=== PATIENT | female | born 1995 | race American Indian/Alaskan Native ===

== ENCOUNTER 2019-08-02 14:17 | Emergency (ER) | payer SELFPAY ==
[2019-08-02] MEDS ORDERED: Morphine 4 MG/ML Syringe IVPUSH ONE (14:23)
[2019-08-02] MEDS ORDERED: LORazepam 2 MG/ML SDV IVPUSH ONE (14:23)
[2019-08-02] MEDS ORDERED: Sodium Chloride 0.9% 10 ML Syringe FLUSH PRN (14:23)
--- NOTE | 2019-08-02 15:33 | CR ---
[id number] RAD/RAD Chest PA And Lateral EXAM: FRONTAL AND LATERAL CHEST INDICATION: POSTERIOR CHEST PAIN POST FALL. COMPARISON: None. DISCUSSION: The heart and lungs are normal in appearance. IMPRESSION: 1. Negative exam. Javi Sparrow MD 08/03/19 [id number] Thank you for allowing us to participate in the care of your patient.
--- NOTE | 2019-08-03 03:31 | EDM.PDOC ---
ED HPI GENERAL MEDICAL PROBLEM - General Chief Complaint: Back Pain or Injury Stated Complaint: ER Time Seen by Provider: 08/02/19 14:25 Source of Information: Reports: Patient History Limitations: Reports: No Limitations - History of Present Illness INITIAL COMMENTS - FREE TEXT/NARRATIVE: Pt. presents to ER with complaints of posterior chest wall pain and shortness of breath. Pt. was initially seen in clinic. She was anxious and extremely dyspneic and was brought to ER. Pt. states that she feel onto her backside in stairs and slid on her back down approx. 20-25 stairs. Pt. did not strike her head. No midline back pain. No neck discomfort. Pt. was tachypneic and hyperventilating today and has been this AM. Denies any history of asthma. No drug use. Onset Date: 08/02/19 Location: Reports: Chest Bilateral Back Pain Score (Numeric/FACES): 10 - Related Data Allergies Allergy/AdvReac Type Severity Reaction Status Date / Time No Known Allergies Allergy Verified 08/02/19 14:54 Home Meds: Home Meds . [No Known Home Meds] 08/02/19 [History] Past Medical History - Past Health History Medical/Surgical History: Denies Medical/Surgical History Psychiatric History: Reports: Anxiety Social & Family History - Tobacco Use Smoking Status *Q: Current Every Day Smoker Years of Tobacco use: 10 Packs/Tins Daily: 1 - Recreational Drug Use Drug Use in Last 12 Months: Yes Recreational Drug Type: Reports: Marijuana/Hashish ED ROS GENERAL - Review of Systems Review Of Systems: See Below Constitutional: Reports: No Symptoms HEENT: Reports: No Symptoms Respiratory: Reports: Shortness of Breath. Denies: Cough Cardiovascular: Reports: No Symptoms Endocrine: Reports: No Symptoms GI/Abdominal: Reports: No Symptoms : Reports: No Symptoms Musculoskeletal: Reports: No Symptoms Skin: Reports: No Symptoms Neurological: Reports: Tremors, Trouble Speaking Psychiatric: Reports: Agitation, Anxiety Hematologic/Lymphatic: Reports: No Symptoms ED EXAM, GENERAL - Physical Exam Exam: See Below Exam Limited By: No Limitations General Appearance: Alert, WD/WN, No Apparent Distress Eye Exam: Bilateral Eye: EOMI, Normal Fundi, Normal Inspection, PERRL Nose: Normal Inspection, No Blood Throat/Mouth: Normal Inspection, Normal Lips, Normal Teeth, No Airway Compromise Head: Atraumatic, Normocephalic Neck: Normal Inspection, Supple, Non-Tender, Full Range of Motion Respiratory/Chest: Respiratory Distress, Other (tachypnea, hyperventilation) Cardiovascular: Normal Peripheral Pulses, Regular Rate, Rhythm, No Edema, No Gallop, No JVD, No Murmur, No Rub GI/Abdominal: Soft, Non-Tender, No Distention, No Mass, Pelvis Stable (Female) Exam: Deferred Rectal (Female) Exam: Deferred Back Exam: Normal Inspection, Full Range of Motion, Other (pain to posterior chest wall). No: Muscle Spasm, Paraspinal Tenderness, Vertebral Tenderness Extremities: Normal Inspection, Normal Range of Motion Neurological: Alert, Oriented, CN II-XII Intact, Normal Gait, No Motor/Sensory Deficits Psychiatric: Anxious, Tearful Skin Exam: Warm, Dry, Intact, Normal Color, No Rash Course - Vital Signs Last Recorded V/S: Last Vital Signs Temp 36.6 C 08/02/19 14:20 Pulse 110 H 08/02/19 14:20 Resp 28 H 08/02/19 14:20 BP 139/96 H 08/02/19 14:20 Pulse Ox 100 08/02/19 14:20 - Orders/Labs/Meds Orders: Active Orders 24 hr Category Date Time Status Peripheral IV Insertion Adult [OM.PC] Routine Oth 08/02/19 14:23 Ordered Meds: Medications Discontinued Medications Generic Name Dose Route Start Last Admin Trade Name Freq PRN Reason Stop Dose Admin Lorazepam 1 mg 08/02/19 14:23 08/02/19 14:30 Ativan IVPUSH 08/02/19 14:24 1 mg STAT ONE Administration Morphine Sulfate 4 mg 08/02/19 14:23 08/02/19 14:30 Morphine IVPUSH 08/02/19 14:24 4 mg ONETIME ONE Administration Sodium Chloride 10 ml 08/02/19 14:23 Saline Flush FLUSH ASDIRECTED PRN Keep Vein Open - Radiology Interpretation Free Text/Narrative:: Chest x-ray is negative for acute pathology Departure - Departure Time of Disposition: 15:46 Disposition: Home, Self-Care 01 Clinical Impression: Chest wall contusion, Acute hyperventilation syndrome - Discharge Information Instructions: Acute Back Pain, Adult Referrals: Layla Hermosillo MD [Primary Care Provider] - Forms: ED Department Discharge Additional Instructions: [place] 5/325mg 1 every 4-6 hours as needed for pain. Ibuprofen 200mg 3 tabs every 6 hours as needed for pain. Ice painful areas for 15 min every hour. Sepsis Event Note - Evaluation Sepsis Screening Result: No Definite Risk - My Orders Last 24 Hours: My Active Orders 08/02/19 14:23 Peripheral IV Insertion Adult [OM.PC] Routine - Assessment/Plan Last 24 Hours: My Active Orders 08/02/19 14:23 Peripheral IV Insertion Adult [OM.PC] Routine Plan: [place] 5/325mg 1 every 4-6 hours as needed for pain. Ibuprofen 200mg 3 tabs every 6 hours as needed for pain. Ice painful areas for 15 min every hour.
== END 2019-08-02 15:46 | disposition home or self-care (01) ==
LOC: VM.ED 14:17
DX: S20.219A Contusion of unspecified front wall of thorax, initial encounter (principal); F45.8 Other somatoform disorders; F17.210 Nicotine dependence, cigarettes, uncomplicated; W10.9XXA Fall (on) (from) unspecified stairs and steps, initial encounter
CPT/HCPCS: 71046; 96374; 96375; 99284; 99285; J2060; J2270

== ENCOUNTER 2020-02-03 22:09 | Emergency (ER) | payer OTHER ==
[2020-02-03] MEDS ORDERED: Acetaminophen/HYDROcodone 325-10 MG Tab PO ONE (22:24)
[2020-02-03] MEDS ORDERED: LORazepam 2 MG/ML SDV IM ONE (22:54)
--- NOTE | 2020-02-03 23:08 | EDM.PDOC ---
ED HPI GENERAL MEDICAL PROBLEM - General Chief Complaint: General Stated Complaint: FALL Time Seen by Provider: 02/03/20 22:21 Source of Information: Reports: Patient History Limitations: Reports: No Limitations - History of Present Illness INITIAL COMMENTS - FREE TEXT/NARRATIVE: Pt. presents to ER with complaints of R sided lower anterior chest wall pain. Pt. states that she slipped in some sauce that she spilled and fell from standing height, hitting her chest on the corner of a sink. She states that she is experiencing severe discomfort, worse with deep breathing. Denies stiking head. No neck pain. No substernal chest pain. She is crying and hyperventilating on arrival to ER. Denies any pelvic pain or extremity trauma. Onset: Today Onset Date: 02/03/20 Location: Reports: Chest Quality: Reports: Throbbing Severity: Severe Right Pain Score (Numeric/FACES): 9 - Related Data Allergies Allergy/AdvReac Type Severity Reaction Status Date / Time No Known Allergies Allergy Verified 02/03/20 22:12 Home Meds: Home Meds . [No Known Home Meds] 08/02/19 [History] Past Medical History - Past Health History Medical/Surgical History: Denies Medical/Surgical History Psychiatric History: Reports: Anxiety Social & Family History - Tobacco Use Smoking Status *Q: Current Status Unknown ED ROS GENERAL - Review of Systems Review Of Systems: Comprehensive ROS is negative, except as noted in HPI. ED EXAM, GENERAL - Physical Exam Exam: See Below Exam Limited By: No Limitations General Appearance: Alert, WD/WN, No Apparent Distress Head: Atraumatic, Normocephalic Neck: Normal Inspection, Supple, Non-Tender Respiratory/Chest: No Respiratory Distress, Lungs Clear, Normal Breath Sounds, No Accessory Muscle Use, Chest Non-Tender Cardiovascular: Normal Peripheral Pulses, Regular Rate, Rhythm, No Edema, No Gallop, No JVD, No Murmur, No Rub GI/Abdominal: Soft, No Distention, No Mass Back Exam: Normal Inspection, Full Range of Motion Course - Vital Signs Last Recorded V/S: Last Vital Signs Temp 37.4 C 02/03/20 22:14 Pulse 118 H 02/03/20 22:14 Resp 20 02/03/20 22:14 BP 107/61 02/03/20 22:14 Pulse Ox 99 06/14/20 22:14 - Orders/Labs/Meds Orders: Active Orders 24 hr Category Date Time Status Chest 2V [CR] Stat Exams 02/03/20 22:24 Taken Meds: Medications Discontinued Medications Generic Name Dose Route Start Last Admin Trade Name Angeline PRN Reason Stop Dose Admin Hydrocodone Bitart/Acetaminophen 1 tab 02/03/20 22:24 02/03/20 22:30 Strum 325-10 Mg PO 02/03/20 22:25 1 tab ONETIME ONE Administration Hydrocodone Bitart/Acetaminophen 1 packet 02/03/20 23:21 02/03/20 23:20 Take Home: Acetam/Hydrocodon 325-5 Mg, 5 Pack PO 02/03/20 23:22 1 packet ONETIME ONE Administration Lorazepam 2 mg 02/03/20 22:54 02/03/20 23:00 Ativan IM 02/03/20 22:55 2 mg ONETIME ONE Administration Departure - Departure Time of Disposition: 23:40 Disposition: Home, Self-Care 01 Clinical Impression: Chest wall injury - Discharge Information Instructions: Acetaminophen; Hydrocodone tablets or capsules, Rib Contusion Referrals: Layla Hermosillo MD [Primary Care Provider] - Forms: ED Department Discharge Additional Instructions: Home to rest. Strum 5/325mg 1 every 6 hours as needed for pain Ibuprofen 200mg 3 tabs every 6 hours as needed for pain Use heating pack Off work tomorrow as needed Sepsis Event Note (ED) - Evaluation Sepsis Screening Result: No Definite Risk - Focused Exam Vital Signs: Vital Signs Temp Pulse Resp BP Pulse Ox 02/03/20 22:14 37.4 C 118 H 20 107/61 99 - My Orders Last 24 Hours: My Active Orders 02/03/20 22:24 Chest 2V [CR] Stat - Assessment/Plan Last 24 Hours: My Active Orders 02/03/20 22:24 Chest 2V [CR] Stat
[2020-02-03] MEDS ORDERED: Take Home: Acetaminophen/HYDROcodone 325-5 MG, 5 Tab Pack PO ONE (23:21)
--- NOTE | 2020-02-04 07:53 | CR ---
[id number] RAD/RAD Chest PA And Lateral EXAM: RAD Chest PA And Lateral CLINICAL DATA: TRAUMA COMPARISON: CORRELATION IS MADE WITH AUGUST 02, 2019 FINDINGS: The lungs are clear. The cardiomediastinal contour is normal. The regional bones and soft tissues are unremarkable. IMPRESSION: NO ACUTE PROCESS. Alvarado Patrick MD 02/04/20 0752 Thank you for allowing us to participate in the care of your patient.
== END 2020-02-03 23:25 | disposition home or self-care (01) ==
LOC: VM.ED 22:09
DX: S29.9XXA Unspecified injury of thorax, initial encounter (principal); W01.198A Fall on same level from slipping, tripping and stumbling with subsequent striking against other object, initial encounter
CPT/HCPCS: 71046; 96372; 99283-GF; 99284-25; A9270-GY; J2060

== ENCOUNTER 2020-02-09 18:41 | Emergency (ER) | payer SELFPAY ==
[2020-02-09] MEDS ORDERED: Ketorolac 15 MG/ML SDV IVPUSH ONE (19:07)
[2020-02-09] MEDS ORDERED: Sodium Chloride 0.9% 10 ML Syringe FLUSH PRN (19:08)
--- NOTE | 2020-02-09 19:19 | EDM.PDOC ---
ED HPI GENERAL MEDICAL PROBLEM - General Chief Complaint: General Stated Complaint: BODY ACHES Time Seen by Provider: 02/09/20 18:55 Source of Information: Reports: Patient History Limitations: Reports: No Limitations - History of Present Illness INITIAL COMMENTS - FREE TEXT/NARRATIVE: Patient comes into the emergency department with complaints of lower abdominal discomfort. Patient states that the abdominal pain started earlier today. She states that she started spotting blood yesterday and it has continued onto Today. Patient states that she last had her period on January 20 which was a normal period and it lasted approximately 5 days. She is not expected to have her period for another 2 weeks. Patient states that she is also had urinary frequency, hesitancy, and urgency. Patient also states that she has been chilled throughout the entire day and also has generalized body aches.Patient also describes lower abdominal pain as cramping sensation and pulsating.Or si tting. She denies taking any medication prior to arrival to the emergency department.Patient states that she is in a monogamous relationship she had sex yesterday and the day before that prior to that it was approximately 2 months before then. Patient states that her and her have been however they reconnected this last week. She does not feel that he has had any other sexual partners. She has no reason to suspect that he has not been truthful with her. Patient was due to work this evening however she states due to the significant amount of pain and discomfort she was not able to attend work.Patient also states that she does have some lower extremity weakness and that is not new for her. She states that she often gets it with the weather/climate changes and has had that worked up in the past and feels it is currently no different feeling. Onset: Sudden Quality: Reports: Throbbing, Other Severity: Severe Improves with: Reports: Heat Therapy Worsens with: Reports: Immobilization, Movement Associated Symptoms: Reports: Fever/Chills, Loss of Appetite, Malaise - Related Data Allergies Allergy/AdvReac Type Severity Reaction Status Date / Time No Known Allergies Allergy Verified 02/03/20 22:12 Home Meds: Home Meds Sulfamethoxazole/Trimethoprim [Bactrim Ds Tablet] 1 each PO BID 4 Days #8 tablet 02/09/20 [Rx] Past Medical History - Past Health History Medical/Surgical History: Denies Medical/Surgical History Psychiatric History: Reports: Anxiety ED ROS GENERAL - Review of Systems Review Of Systems: Comprehensive ROS is negative, except as noted in HPI. Constitutional: Reports: Fever, Chills, Malaise, Weakness, Decreased Appetite HEENT: Reports: No Symptoms Respiratory: Reports: No Symptoms GI/Abdominal: Reports: Abdominal Pain : Reports: Frequency, Hematuria, Pain, Urgency Musculoskeletal: Reports: No Symptoms Skin: Reports: No Symptoms Neurological: Reports: No Symptoms Psychiatric: Reports: No Symptoms Hematologic/Lymphatic: Reports: No Symptoms ED EXAM, GENERAL - Physical Exam Exam: See Below Exam Limited By: No Limitations General Appearance: Alert, WD/WN, No Apparent Distress Respiratory/Chest: No Respiratory Distress, Lungs Clear, Normal Breath Sounds, No Accessory Muscle Use, Chest Non-Tender Cardiovascular: Normal Peripheral Pulses, Regular Rate, Rhythm, No Edema GI/Abdominal: Normal Bowel Sounds, No Organomegaly, Tender Back Exam: Normal Inspection, Full Range of Motion Extremities: Normal Inspection, Normal Range of Motion, Non-Tender, Normal Capillary Refill Neurological: Alert, Oriented, Normal Gait Psychiatric: Normal Affect, Normal Mood Skin Exam: Warm, Dry, Intact Course - Orders/Labs/Meds Orders: Active Orders 24 hr Category Date Time Status CULTURE URINE [RM] Stat Lab 02/09/20 19:10 Received Sodium Chloride 0.9% [Saline Flush] Med 02/09/20 19:08 Active 10 ml FLUSH ASDIRECTED PRN Peripheral IV Insertion Adult [OM.PC] Stat Oth 02/09/20 19:08 Ordered Medication Orders Sodium Chloride (Saline Flush) 10 ml FLUSH ASDIRECTED PRN PRN Reason: Keep Vein Open Labs: Laboratory Tests 02/09/20 02/09/20 02/09/20 Range/Units 19:10 19:22 19:22 WBC 6.0 (4.0-10.0) x10^3/uL RBC 4.79 (4.00-5.50) x10^6/uL Hgb 10.6 L (12.0-16.0) g/dL Hct 34.4 (33.0-47.0) % MCV 71.8 L (78.0-93.0) fL MCH 22.1 L (26.0-32.0) pg MCHC 30.8 L (32.0-36.0) g/dL RDW Coeff of Fabi 18.2 H (10.0-15.0) % Plt Count 311 (130-400) x10^3/uL Neut % (Auto) 50.5 (50.0-80.0) % Lymph % (Auto) 38.2 (25.0-50.0) % [place] % (Auto) 7.7 (2.0-11.0) % Eos % (Auto) 2.8 (0.0-4.0) % Baso % (Auto) 0.8 (0.2-1.2) % Sodium 143 (136-145) mmol/L Potassium 3.7 (3.5-5.1) mmol/L Chloride 106 (98-107) mmol/L Carbon Dioxide 25 (21-32) mmol/L Anion Gap 15.7 (10-20) mmol/L BUN 6 L (7-18) mg/dL Creatinine 0.8 (0.55-1.02) mg/dL Est Cr Clr Drug Dosing TNP Estimated GFR (MDRD) > 60 Glucose 93 (74-106) mg/dL Calcium 8.5 (8.5-10.1) mg/dL Corrected Calcium 8.66 (8.5-10.1) mg/dL Total Bilirubin 0.2 (0.2-1.0) mg/dL AST 22 (15-37) U/L ALT 18 (14-59) U/L Alkaline Phosphatase 78 (46-116) U/L Total Protein 7.1 (6.4-8.2) g/dL Albumin 3.8 (3.4-5.0) g/dL Globulin 3.3 Albumin/Globulin Ratio 1.15 Urine Color Red H (YELLOW) Urine Appearance Cloudy H (CLEAR) Urine pH 7.0 (5.0-8.0) Ur Specific [place] 1.015 Urine Protein 100 H (NEGATIVE) mg/dL Urine Glucose (UA) Negative (NEGATIVE) mg/dL Urine Ketones Negative (NEGATIVE) mg/dL Urine Occult Blood Large H (NEGATIVE) Urine Nitrite Negative (NEGATIVE) Urine Bilirubin Negative (NEGATIVE) Urine Urobilinogen 0.2 (0.2) EU/dL Ur Leukocyte Esterase Trace H (NEGATIVE) Urine RBC Packed H (NOT SEEN) /HPF Urine WBC 5-10 H (NOT SEEN) /HPF Ur Squamous Epith Cells Few H (NEGATIVE) /HPF Urine Bacteria Not seen (NEGATIVE) /HPF Urine Mucus Not seen (NEGATIVE) /LPF SARS-CoV-2 RNA (RT-PCR) (NEGATIVE) 02/09/20 Range/Units 19:28 WBC (4.0-10.0) x10^3/uL RBC (4.00-5.50) x10^6/uL Hgb (12.0-16.0) g/dL Hct (33.0-47.0) % MCV (78.0-93.0) fL MCH (26.0-32.0) pg MCHC (32.0-36.0) g/dL RDW Coeff of Fabi (10.0-15.0) % Plt Count (130-400) x10^3/uL Neut % (Auto) (50.0-80.0) % Lymph % (Auto) (25.0-50.0) % [place] % (Auto) (2.0-11.0) % Eos % (Auto) (0.0-4.0) % Baso % (Auto) (0.2-1.2) % Sodium (136-145) mmol/L Potassium (3.5-5.1) mmol/L Chloride (98-107) mmol/L Carbon Dioxide (21-32) mmol/L Anion Gap (10-20) mmol/L BUN (7-18) mg/dL Creatinine (0.55-1.02) mg/dL Est Cr Clr Drug Dosing Estimated GFR (MDRD) Glucose (74-106) mg/dL Calcium (8.5-10.1) mg/dL Corrected Calcium (8.5-10.1) mg/dL Total Bilirubin (0.2-1.0) mg/dL AST (15-37) U/L ALT (14-59) U/L Alkaline Phosphatase (46-116) U/L Total Protein (6.4-8.2) g/dL Albumin (3.4-5.0) g/dL Globulin Albumin/Globulin Ratio Urine Color (YELLOW) Urine Appearance (CLEAR) Urine pH (5.0-8.0) Ur Specific [place] Urine Protein (NEGATIVE) mg/dL Urine Glucose (UA) (NEGATIVE) mg/dL Urine Ketones (NEGATIVE) mg/dL Urine Occult Blood (NEGATIVE) Urine Nitrite (NEGATIVE) Urine Bilirubin (NEGATIVE) Urine Urobilinogen (0.2) EU/dL Ur Leukocyte Esterase (NEGATIVE) Urine RBC (NOT SEEN) /HPF Urine WBC (NOT SEEN) /HPF Ur Squamous Epith Cells (NEGATIVE) /HPF Urine Bacteria (NEGATIVE) /HPF Urine Mucus (NEGATIVE) /LPF SARS-CoV-2 RNA (RT-PCR) Negative (NEGATIVE) Meds: Medications Generic Name Dose Route Start Last Admin Trade Name Freq PRN Reason Stop Dose Admin Sodium Chloride 10 ml 02/09/20 19:08 Saline Flush FLUSH ASDIRECTED PRN Keep Vein Open Discontinued Medications Generic Name Dose Route Start Last Admin Trade Name Freq PRN Reason Stop Dose Admin Ceftriaxone Sodium 1 gm 02/09/20 19:59 Rocephin IVPUSH 02/09/20 20:00 ONETIME ONE Ketorolac Tromethamine 15 mg 02/09/20 19:07 02/09/20 19:42 Toradol IVPUSH 02/09/20 19:08 15 mg ONETIME ONE Administration Phenazopyridine HCl 95 mg 02/09/20 20:02 Urinary Pain Relief PO 02/09/20 20:03 STAT STA Trimethoprim/Sulfamethoxazole 1 packet 02/09/20 20:00 Take Home: Sulfameth/Trimet 800-160mg, 2 Pack PO 02/09/20 20:01 ONETIME ONE Departure - Departure Time of Disposition: 20:10 Disposition: Home, Self-Care 01 Condition: Good Clinical Impression: UTI (urinary tract infection) Qualifiers: Urinary tract infection type: site unspecified Hematuria presence: with hematuria Qualified Code(s): N39.0 - Urinary tract infection, site not specified - Discharge Information *PRESCRIPTION DRUG MONITORING PROGRAM REVIEWED*: Not Applicable *COPY OF PRESCRIPTION DRUG MONITORING REPORT IN PATIENT KERVIN: Not Applicable Prescriptions: Sulfamethoxazole/Trimethoprim [Bactrim Ds Tablet] 1 each PO BID 4 Days #8 tablet Instructions: Urinary Tract Infection, Adult, Sulfamethoxazole; Trimethoprim, SMX-TMP tablets, Probiotics Referrals: Layla Hermosillo MD [Primary Care Provider] - Forms: ED Department Discharge Additional Instructions: 1. rest 2. increase your water intake 3. Take all antibiotics as prescribed even if feeling better 4. Take a probiotic while on antibiotics to help promote healthy GI motility 5. Activity and diet as tolerated 6. Can use Ibuprofen and tylenol for any fever or discomfort 7. Follow up with your PCP or return if symptoms progress or worsen 8. Education provided to you regarding your illness, probiotics, antibiotic prescribed 9. Call with any questions or concerns - My Orders Last 24 Hours: My Active Orders 02/09/20 19:08 Sodium Chloride 0.9% [Saline Flush] 10 ml FLUSH ASDIRECTED PRN Peripheral IV Insertion Adult [OM.PC] Stat 02/09/20 19:10 CULTURE URINE [RM] Stat - Assessment/Plan Last 24 Hours: My Active Orders 02/09/20 19:08 Sodium Chloride 0.9% [Saline Flush] 10 ml FLUSH ASDIRECTED PRN Peripheral IV Insertion Adult [OM.PC] Stat 02/09/20 19:10 CULTURE URINE [RM] Stat Assessment:: 1. abdominal pain 2. Plan: 1. Labs completed in the ER. Results reviewed with the patient 2. CT scan completed in the ER. Results reviewed with the patient 3. IV initiated in the emergency department 4. Pain medication given for severe pain and discomfort- 5. UA/UC ordered 6. Rocephin IV given 7. Pyridium PO given in the ER 8. Bactrim take home and script sent with patient 9. Patient and nursing staff was updated regarding the plan of care 10. Patient and family are agreeable to the above plan of care 11. All questions and concerns were addressed with the patient and family prior to discharge
[2020-02-09 19:48] LABS: CHLORIDE,CL 106 mmol/L (98-107); SODIUM,NA 143 mmol/L (136-145)
[2020-02-09 19:49] LABS: ANION GAP 15.7 mmol/L (10-20)
--- NOTE | 2020-02-09 19:56 | CT ---
[id number] CT/CT Abdomen Pelvis WO IV Exam: CT Abdomen Pelvis WO IV Clinical Data: ABDOMINAL PAIN COMPARISON: NO PREVIOUS SIMILAR EXAM IS AVAILABLE FINDINGS: The gallbladder is normal The appendix is normal There is no bowel obstruction. There is no free air or free fluid IV contrast was not used limiting the study The liver and spleen, adrenals, aorta, pancreas, and kidneys show no acute abnormalities There are granulomatous changes of the spleen The pelvis shows no mass or adenopathy The uterus is deviated to the left Consider follow-up CT and pelvis with contrast enhancement if needed IMPRESSION: NO ACUTE PROCESS Alvarado Patrick MD 02/09/201954 Thank you for allowing us to participate in the care of your patient.
[2020-02-09] MEDS ORDERED: cefTRIAXone 1 GM Vial IVPUSH ONE (19:59)
[2020-02-09] MEDS ORDERED: Take Home: Sulfamethoxazole/Trimethoprim 800-160 MG Tab, 2 Tab Pack PO ONE (20:00)
[2020-02-09] MEDS ORDERED: Phenazopyridine 95 MG Tab PO STA (20:02)
== END 2020-02-09 20:57 | disposition home or self-care (01) ==
LOC: VM.ED 18:41
DX: N39.0 Urinary tract infection, site not specified (principal); R31.9 Hematuria, unspecified; Z20.828 Contact with and (suspected) exposure to other viral communicable diseases
CPT/HCPCS: 74176; 80053; 81001; 85025; 87086; 87635; 96374; 96375; 99283; 99284; A9270; J0696; J1885; U0002

== ENCOUNTER 2020-09-03 16:51 | Emergency (ER) | payer MEDICAID ==
[2020-09-03] MEDS ORDERED: Lactated Ringers 1,000 ML IV ONE (17:05)
[2020-09-03] MEDS ORDERED: Morphine 2 MG/ML SYRINGE IVPUSH ONE ×2 (17:05→18:36)
[2020-09-03] MEDS ORDERED: Sodium Chloride 0.9% 10 ML Syringe FLUSH PRN (17:05)
[2020-09-03] MEDS ORDERED: Ondansetron 4 MG/2 ML SDV IVPUSH ONE (17:05)
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
[2020-09-03 17:39] LABS: CHLORIDE,CL 101 mmol/L (98-107); SODIUM,NA 137 mmol/L (136-145)
[2020-09-03 17:43] LABS: ANION GAP 14.9 mmol/L (5-15)
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
[2020-09-03 18:56] LABS: BUPRENORPHINE,URINE NEGATIVE (NEGATIVE)
[2020-09-03 18:57] LABS: MARIJUANA,URINE POSITIVE (NEGATIVE); METHYLENEDIOXYMETHAMP,UR NEGATIVE (NEGATIVE); PHENCYCLIDINE,URINE NEGATIVE (NEGATIVE)
== END 2020-09-03 19:13 | disposition short-term general hospital (02) ==
LOC: VM.ED 16:51
DX: S05.92XA Unspecified injury of left eye and orbit, initial encounter (principal); S20.01XA Contusion of right breast, initial encounter; H11.32 Conjunctival hemorrhage, left eye; R42 Dizziness and giddiness; Y04.0XXA Assault by unarmed brawl or fight, initial encounter; Y92.009 Unspecified place in unspecified non-institutional (private) residence as the place of occurrence of the external cause
CPT/HCPCS: 70450; 72125; 80053; 80305-QW; 80307; 81025; 83735; 85025; 86140; 96374; 96375; 96376; 99284; 99285-25; J2270; J2405; J7120

== ENCOUNTER 2021-02-02 15:29 | Emergency (ER) | payer SELFPAY ==
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
[2021-02-02] MEDS ORDERED: hydrOXYzine HCl 25 MG Tab PO ONE (17:17)
== END 2021-02-02 17:35 | disposition home or self-care (01) ==
LOC: VM.ED 15:29
DX: F41.9 Anxiety disorder, unspecified (principal); Z72.0 Tobacco use
CPT/HCPCS: 93005; 99284; A9270

== ENCOUNTER 2021-06-24 20:17 | Emergency (ER) | payer MEDICAID, OTHER ==
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
[2021-06-24] MEDS: LORazepam 1 MG Tab PO ONE (20:46)
== END 2021-06-24 21:28 | disposition home or self-care (01) ==
LOC: VM.ED 20:17
DX: F41.0 Panic disorder [episodic paroxysmal anxiety] (principal); Z63.0 Problems in relationship with spouse or partner
CPT/HCPCS: 99283; 99284; A9270-GY

== ENCOUNTER 2021-07-30 14:14 | Emergency (ER) | payer SELFPAY ==
[2021-07-30] MEDS ORDERED: LORazepam 1 MG Tab PO ONE (14:45)
[2021-07-30 15:13] LABS: ANION GAP 13.6 mmol/L (5-15); CHLORIDE,CL 105 mmol/L (98-107); SODIUM,NA 140 mmol/L (136-145)
[2021-07-30 15:26] LABS: ACETAMINOPHEN 0 ug/ml (10-30)
[2021-07-30 15:48] LABS: BARBITURATE SCREEN,URINE NEGATIVE (NEGATIVE); BENZODIAZEPINES SCREEN,URINE NEGATIVE (NEGATIVE); BUPRENORPHINE SCREEN,URINE NEGATIVE (NEGATIVE); METHAMPHETAMINE SCREEN, URINE NEGATIVE (NEGATIVE); THC SCREEN,URINE 50 NG/ML POSITIVE (NEGATIVE)
--- NOTE | 2021-07-30 16:12 | EDM.PDOCBH ---
ED HPI GENERAL MEDICAL PROBLEM - General Chief Complaint: Behavioral/Psych Stated Complaint: EVALUATION Time Seen by Provider: 07/30/21 14:15 Source of Information: Reports: Patient, Police History Limitations: Reports: No Limitations - History of Present Illness INITIAL COMMENTS - FREE TEXT/NARRATIVE: Patient comes emergency department today from home with the police for concerns of suicidal ideation and statements. This patient was at home with her today when they got in a verbal disagreement. Some very "hurtful" things were said between her and her and she was quite upset. She then texted a family member and said she just wants to or kill her self. She has made many suicidal statements in the past and also has done cutting in the past but nothing recently. She denies taking anything in an attempt to harm herself today. She denies cutting herself. Upon arrival the patient is quite tearful and anxious and complains of having a panic attack. She states that she was very worked up this morning after a verbal disagreement and was suicidal at that time. Although she is not suicidal at this time. She would not harm her self. She is states that she was caught up in the moment and did not know what to do and reached out to a family member. She denies any recreational drug usage other than marijuana which she feels is the only thing that treats her anxiety. She has taken anxiety medication in the past but it has not worked after she has taken it for 1 to 2 days so she has discontinued it. She does not see a counselor on a regular basis. She denies any homicidal ideation. She is without any other physical complaints at this time. - Related Data Allergies Allergy/AdvReac Type Severity Reaction Status Date / Time No Known Allergies Allergy Verified 06/24/21 23:59 Home Meds: Home Meds . 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 Social & Family History - Family History Family Medical History: No Pertinent Family History ED ROS GENERAL - Review of Systems Review Of Systems: Comprehensive ROS is negative, except as noted in HPI. ED EXAM, BEHAVIORAL HEALTH - Physical Exam Exam: See Below Exam Limited By: No Limitations General Appearance: Alert, WD/WN, Anxious (She is sobbing and crying) Eye Exam: Bilateral Eye: EOMI, PERRL Ears: Normal External Exam Nose: Normal Inspection Throat/Mouth: Normal Inspection Head: Atraumatic Neck: Normal Inspection Respiratory/Chest: No Respiratory Distress, Lungs Clear, Normal Breath Sounds, No Accessory Muscle Use, Chest Non-Tender Cardiovascular: Normal Peripheral Pulses, Regular Rate, Rhythm GI/Abdominal: Normal Bowel Sounds, Soft, Non-Tender (Female) Exam: Deferred Rectal (Female) Exam: Deferred Back Exam: Normal Inspection Extremities: Normal Inspection Neurological: Alert, Normal Mood/Affect, CN II-XII Intact, Normal Cognition, Normal Gait, Normal Reflexes, No Motor/Sensory Deficits, Oriented x 3 Psychiatric: Alert, Oriented, Tearful. No: Disoriented, Inattentive, Non- Communicative, Poor Eye Contact, Uncooperative, Withdrawn, Homicidal Thoughts, Phobic, Oriental Orthodox Delusions, Suicidal Plan, Suicidal Thoughts, Tangential Thoughts, Auditory Hallucinations, Visual Hallucinations, Grandiose Thoughts, Pressured Speech Skin Exam: Warm, Dry, Intact, Normal color, No rash COURSE, BEHAVIORAL HEALTH COMP - Course Orders, Labs, Meds: Laboratory Tests 07/30/21 07/30/21 07/30/21 Range/Units 14:47 14:47 14:47 WBC 7.1 (4.0-10.0) x10^3/uL RBC 4.65 (4.00-5.50) x10^6/uL Hgb 10.4 L (12.0-16.0) g/dL Hct 33.6 (33.0-47.0) % MCV 72.3 L (78.0-93.0) fL MCH 22.4 L (26.0-32.0) pg MCHC 31.0 L (32.0-36.0) g/dL RDW Coeff of Fabi 17.2 H (10.0-15.0) % Plt Count 263 (130-400) x10^3/uL Immature Gran % (Auto) 0.00 (0.00-0.43) % Neut % (Auto) 76.0 (50.0-80.0) % Lymph % (Auto) 17.6 L (25.0-50.0) % [place] % (Auto) 5.4 (2.0-11.0) % Eos % (Auto) 0.6 (0.0-4.0) % Baso % (Auto) 0.4 (0.2-1.2) % Neut # (Auto) 5.4 (1.8-7.7) x10^3/uL Lymph # (Auto) 1.3 (1.0-4.8) x10^3/uL [place] # (Auto) 0.4 (0.0-0.8) x10^3/uL Eos # (Auto) 0.0 (0.0-0.5) x10^3/uL Baso # (Auto) 0.0 (0.0-0.2) x10^3/uL Immature Gran # (Auto) 0.00 (0.00-0.07) x10^3/uL Sodium 140 (136-145) mmol/L Potassium 3.6 (3.5-5.1) mmol/L Chloride 105 (98-107) mmol/L Carbon Dioxide 25 (21-32) mmol/L Anion Gap 13.6 (5-15) mmol/L BUN 9 (7-18) mg/dL Creatinine 0.6 (0.55-1.02) mg/dL Est Cr Clr Drug Dosing 131.11 mL/min Estimated GFR (MDRD) > 60 Glucose 96 (70-99) mg/dL Calcium 8.5 (8.5-10.1) mg/dL Corrected Calcium 8.7 (8.5-10.1) mg/dL Magnesium 1.6 L (1.8-2.4) mg/dL Total Bilirubin 0.2 (0.2-1.0) mg/dL AST 16 (15-37) U/L ALT 17 (14-59) U/L Alkaline Phosphatase 85 (46-116) U/L Total Protein 7.2 (6.4-8.2) g/dL Albumin 3.8 (3.4-5.0) g/dL Globulin 3.4 Albumin/Globulin Ratio 1.12 Urine Color (YELLOW) Urine Appearance (CLEAR) Urine pH (5.0-8.0) Ur Specific [place] Urine Protein (NEGATIVE) mg/dL Urine Glucose (UA) (NEGATIVE) mg/dL Urine Ketones (NEGATIVE) mg/dL Urine Occult Blood (NEGATIVE) Urine Nitrite (NEGATIVE) Urine Bilirubin (NEGATIVE) Urine Urobilinogen (0.2) EU/dL Ur Leukocyte Esterase (NEGATIVE) Urine RBC (NOT SEEN) /HPF Urine WBC (NOT SEEN) /HPF Ur Squamous Epith Cells (NOT SEEN) /HPF Urine Bacteria (NOT SEEN) /HPF Urine Mucus (NOT SEEN) /LPF Salicylates 4.9 (2.8-20(Therapeutic)) mg/dL Urine Opiates Screen (NEGATIVE) Ur Buprenorphine Scrn (NEGATIVE) Ur Oxycodone Screen (NEGATIVE) Urine Methadone Screen (NEGATIVE) Acetaminophen 0 L (10-30) ug/ml Ur Barbiturates Screen (NEGATIVE) Ur Phencyclidine Scrn (NEGATIVE) Ur Amphetamine Screen (NEGATIVE) U Methamphetamines Scrn (NEGATIVE) Urine MDMA Screen (NEGATIVE) U Benzodiazepines Scrn (NEGATIVE) U Cocaine Metab Screen (NEGATIVE) U Marijuana (THC) Screen (NEGATIVE) Ethyl Alcohol < 3 (0-3) mg/dL SARS CoV-2 RNA Rapid FARIBA (NEGATIVE) 07/30/21 07/30/21 07/30/21 Range/Units 15:10 15:10 15:10 WBC (4.0-10.0) x10^3/uL RBC (4.00-5.50) x10^6/uL Hgb (12.0-16.0) g/dL Hct (33.0-47.0) % MCV (78.0-93.0) fL MCH (26.0-32.0) pg MCHC (32.0-36.0) g/dL RDW Coeff of Fabi (10.0-15.0) % Plt Count (130-400) x10^3/uL Immature Gran % (Auto) (0.00-0.43) % Neut % (Auto) (50.0-80.0) % Lymph % (Auto) (25.0-50.0) % [place] % (Auto) (2.0-11.0) % Eos % (Auto) (0.0-4.0) % Baso % (Auto) (0.2-1.2) % Neut # (Auto) (1.8-7.7) x10^3/uL Lymph # (Auto) (1.0-4.8) x10^3/uL [place] # (Auto) (0.0-0.8) x10^3/uL Eos # (Auto) (0.0-0.5) x10^3/uL Baso # (Auto) (0.0-0.2) x10^3/uL Immature Gran # (Auto) (0.00-0.07) x10^3/uL Sodium (136-145) mmol/L Potassium (3.5-5.1) mmol/L Chloride (98-107) mmol/L Carbon Dioxide (21-32) mmol/L Anion Gap (5-15) mmol/L BUN (7-18) mg/dL Creatinine (0.55-1.02) mg/dL Est Cr Clr Drug Dosing mL/min Estimated GFR (MDRD) Glucose (70-99) mg/dL Calcium (8.5-10.1) mg/dL Corrected Calcium (8.5-10.1) mg/dL Magnesium (1.8-2.4) mg/dL Total Bilirubin (0.2-1.0) mg/dL AST (15-37) U/L ALT (14-59) U/L Alkaline Phosphatase (46-116) U/L Total Protein (6.4-8.2) g/dL Albumin (3.4-5.0) g/dL Globulin Albumin/Globulin Ratio Urine Color Yellow (YELLOW) Urine Appearance Clear (CLEAR) Urine pH 5.5 (5.0-8.0) Ur Specific [place] 1.020 Urine Protein Negative (NEGATIVE) mg/dL Urine Glucose (UA) Negative (NEGATIVE) mg/dL Urine Ketones Negative (NEGATIVE) mg/dL Urine Occult Blood Trace-lysed H (NEGATIVE) Urine Nitrite Negative (NEGATIVE) Urine Bilirubin Negative (NEGATIVE) Urine Urobilinogen 0.2 (0.2) EU/dL Ur Leukocyte Esterase Negative (NEGATIVE) Urine RBC 0-5 (NOT SEEN) /HPF Urine WBC 0-5 (NOT SEEN) /HPF Ur Squamous Epith Cells Few H (NOT SEEN) /HPF Urine Bacteria Rare (NOT SEEN) /HPF Urine Mucus Few H (NOT SEEN) /LPF Salicylates (2.8-20(Therapeutic)) mg/dL Urine Opiates Screen Negative (NEGATIVE) Ur Buprenorphine Scrn Negative (NEGATIVE) Ur Oxycodone Screen Negative (NEGATIVE) Urine Methadone Screen Negative (NEGATIVE) Acetaminophen (10-30) ug/ml Ur Barbiturates Screen Negative (NEGATIVE) Ur Phencyclidine Scrn Negative (NEGATIVE) Ur Amphetamine Screen Negative (NEGATIVE) U Methamphetamines Scrn Negative (NEGATIVE) Urine MDMA Screen Negative (NEGATIVE) U Benzodiazepines Scrn Negative (NEGATIVE) U Cocaine Metab Screen Negative (NEGATIVE) U Marijuana (THC) Screen Positive H (NEGATIVE) Ethyl Alcohol (0-3) mg/dL SARS CoV-2 RNA Rapid FARIBA Negative (NEGATIVE) Medications Discontinued Medications Generic Name Dose Route Start Last Admin Trade Name Angeilne PRN Reason Stop Dose Admin Lorazepam 2 mg 07/30/21 14:45 07/30/21 14:51 Lorazepam 1 Mg Tab PO 07/30/21 14:46 2 mg ONETIME ONE Administration Re-Assessment/Re-Exam: Patient initially was given 2 mg of Ativan orally. Laboratory evaluation is rather unremarkable. The patient did have a very extended conversation with the screener Kyle over the phone. She was offered to go to [facility] as well as other outpatient services just to get her away from her and have a break for a while although she refuses this. She would really like to go back home that is where she feels that she is safe. She does contract for safety at this time. She denies being suicidal at this time. She really does want some help with counseling and some medication management. [facility] but she also has a primary care provider here in [place] Dr. Hermosillo. The patient contracts for safety and will go home and reach out if she has any episodes or concerns of suicidal ideation. Departure - Departure Time of Disposition: 16:10 Disposition: Home, Self-Care 01 Clinical Impression: Suicidal ideation - Discharge Information *PRESCRIPTION DRUG MONITORING PROGRAM REVIEWED*: Not Applicable *COPY OF PRESCRIPTION DRUG MONITORING REPORT IN PATIENT KERVIN: Not Applicable Instructions: Suicidal Feelings: How to Help Yourself Referrals: Layla Hermosillo MD [Primary Care Provider] - Forms: ED Department Discharge Additional Instructions: Contract for safety at this time. If you feel suicidal you will either call 211 or [phone] to get help. See the [facility] next available for counseling and medication therapy and assistance. Return to the ED if new or worsening symptoms. Follow up with PCP as needed. Sepsis Event Note (ED) - Evaluation Sepsis Screening Result: No Definite Risk
== END 2021-07-30 16:35 | disposition home or self-care (01) ==
LOC: VM.ED 14:14
DX: R45.851 Suicidal ideations (principal); Z20.822 Contact with and (suspected) exposure to COVID-19
CPT/HCPCS: 36415; 80053; 80143; 80179; 80305-QW; 80307; 81001; 83735; 85025; 99284; 99285; A9270-GY; U0002

== ENCOUNTER 2022-02-23 20:56 | Emergency (ER) | payer OTHER ==
[2022-02-23] MEDS ORDERED: Sodium Chloride 0.9% 10 ML Syringe FLUSH PRN (21:09)
[2022-02-23] MEDS ORDERED: Lactated Ringers 1,000 ML IV ONE (21:10)
[2022-02-23] MEDS ORDERED: Ondansetron 4 MG/2 ML SDV IVPUSH ONE (21:10)
[2022-02-23] MEDS ORDERED: LORazepam 2 MG/ML SDV IVPUSH ONE (21:32)
[2022-02-23 21:39] LABS: PTT,PARTIAL THROMBOPLSTIN TIME 26.1 SEC (20.5-30.9)
[2022-02-23 21:41] LABS: ANION GAP 14.6 mmol/L (5-15); CHLORIDE,CL 102 mmol/L (98-107); ESTIMATED GFR 121 mL/min (>=60); SODIUM,NA 137 mmol/L (136-145)
[2022-02-23 21:45] LABS: BARBITURATE SCREEN,URINE NEGATIVE (NEGATIVE); BENZODIAZEPINES SCREEN,URINE NEGATIVE (NEGATIVE); METHAMPHETAMINE SCREEN, URINE NEGATIVE (NEGATIVE); THC SCREEN,URINE 50 NG/ML POSITIVE (NEGATIVE)
[2022-02-23 21:46] LABS: BUPRENORPHINE SCREEN,URINE NEGATIVE (NEGATIVE)
[2022-02-23] MEDS ORDERED: Metoclopramide 10 MG/2 ML SDV IVPUSH ONE (21:53)
[2022-02-23] MEDS ORDERED: Prochlorperazine 10 MG/2 ML SDV IV ONE (21:53)
[2022-02-23] MEDS ORDERED: Famotidine 20 MG/2 ML SDV IVPUSH ONE (21:53)
[2022-02-23 22:05] LABS: CORONAVIRUS COVID-19 NAA NEGATIVE (NEGATIVE); RESPIRATORY SYNCYTIAL VIR NAA NEGATIVE (NEGATIVE)
[2022-02-23] MEDS ORDERED: Take Home: Ondansetron 4 MG Tab.DIS, 5 Tab Pack PO ONE (22:15)
== END 2022-02-23 22:40 ==
LOC: VM.ED 20:56
DX: K29.70 Gastritis, unspecified, without bleeding (principal); D64.9 Anemia, unspecified; R11.2 Nausea with vomiting, unspecified; Z20.822 Contact with and (suspected) exposure to COVID-19
CPT/HCPCS: 0241U; 80053; 80305-QW; 81003; 81025; 82150; 83690; 83735; 84100; 85025; 85610; 85730; 86140; 96361; 96374; 96375; 99284; 99284-25; J0780; J2060; J2405; J2765; J3490; J7120; Q0162

== ENCOUNTER 2023-01-02 19:21 | Emergency (ER) | payer SELFPAY ==
[2023-01-02] MEDS: ALPRAZolam 0.25 MG Tab PO ONE (19:53)
== END 2023-01-02 20:00 ==
LOC: VM.ED 19:21
DX: Z02.89 Encounter for other administrative examinations (principal)
CPT/HCPCS: 99283; A9270